=== PATIENT | female | born 1995 | race Caucasian/White ===

== ENCOUNTER 2018-09-24 16:46 | Emergency (ER) | payer OTHER ==
[~2018-09-24] VITALS: Ht 172.7 cm; Wt 97.5 kg
[2018-09-24 16:56] VITALS: BP 134/99
--- NOTE | 2018-09-24 18:37 | NUR ---
For discharge- [facility] given verbalized understanding Home ambulatory stable
== END 2018-09-24 18:40 | disposition home or self-care (01) ==
LOC: ER 16:49
DX: S60.221A Contusion of right hand, initial encounter (principal); X58.XXXA Exposure to other specified factors, initial encounter; Y93.71 Activity, boxing; Y92.89 Other specified places as the place of occurrence of the external cause; Y99.8 Other external cause status
CPT/HCPCS: 73130; 84703; 99284; A4606

== ENCOUNTER 2019-03-09 22:44 | Emergency (ER) | payer OTHER ==
[~2019-03-09] VITALS: Ht 172.7 cm; Wt 102.1 kg
[2019-03-09 23:25] VITALS: BP 131/91
[2019-03-09] MEDS ORDERED: HYDROCODONE/APAP 5/325MG 1 EACH TABLET ONE (23:55)
[2019-03-10] MEDS ORDERED: HYDROCODONE/APAP 5/325MG 1 EACH TABLET PO ONE
[2019-03-10 00:17] LABS: APPEARANCE,URINE Clear (CLEAR); BILIRUBIN,URINE Negative (NEGATIVE); BLOOD, URINE Small Ery/uL (NEGATIVE); COLOR,URINE Light yellow (YELLOW); KETONES,URINE 15 (NEGATIVE); LEUKOCYTE ESTERASE ,URINE Negative (NEGATIVE); NITRITE, URINE Negative (NEGATIVE); PROTEIN,URINE Negative (NEGATIVE); UGLUCOSE Negative (NEGATIVE); UROBILINOGEN,URINE 0.2 EU/dL (0.2)
[2019-03-10 00:41] LABS: BACTERIA,URINE Few /HPF (None Seen); SQUAMOUS EPITHELIAL CELL,UR Few /HPF (None Seen); WBC,URINE 0-2 /HPF (0-3)
== END 2019-03-10 02:07 | disposition home or self-care (01) ==
LOC: ER 22:49
DX: S39.011A Strain of muscle, fascia and tendon of abdomen, initial encounter (principal); X58.XXXA Exposure to other specified factors, initial encounter; Y93.89 Activity, other specified; Y92.89 Other specified places as the place of occurrence of the external cause; Y99.0 Civilian activity done for income or pay
CPT/HCPCS: 81000-TC; 84703-TC

== ENCOUNTER 2019-07-07 06:13 | Emergency (ER) | payer OTHER ==
[~2019-07-07] VITALS: Ht 172.7 cm; Wt 97.5 kg
[2019-07-07 06:15] VITALS: BP 136/90
== END 2019-07-07 06:41 | disposition home or self-care (01) ==
LOC: ER 06:19
DX: J20.9 Acute bronchitis, unspecified (principal)

== ENCOUNTER 2019-07-09 16:32 | Emergency (ER) | payer OTHER ==
[~2019-07-09] VITALS: Ht 172.7 cm; Wt 97.5 kg
--- NOTE | 2019-07-09 17:00 | NUR ---
cough and congestion since wednesday on PO ATB azithromycin 2 days left to complete Tx, c/o pressure, coughing, sore. on room air, breathing evenly and unlabored. connected to the monitor and pulse ox. kept comfortable, will continue to monitor accordingly.
[2019-07-09 18:55] VITALS: BP 135/81
--- NOTE | 2019-07-09 18:55 | NUR ---
Patient discharged to home in stable condition. Written and verbal after care instructions given. Patient verbalizes understanding of instruction.
== END 2019-07-09 18:55 | disposition home or self-care (01) ==
LOC: ER 16:33
DX: J06.9 Acute upper respiratory infection, unspecified (principal); R09.81 Nasal congestion
CPT/HCPCS: 71045-TC; 84703-TC

== ENCOUNTER 2019-08-14 12:58 | Emergency (ER) | payer OTHER ==
[~2019-08-14] VITALS: Ht 172.7 cm; Wt 97.5 kg
--- NOTE | 2019-08-14 14:45 | NUR ---
patient came in to the er c/o on and off cough x 3 months worst the past 10 days. On room air, breathing evenly and unlabored. connected to the monitor and pulse ox. kept comfortable, will continue to monitor accordingly.
[2019-08-14] MEDS ORDERED: ALBUTEROL FS 2.5 MG/3 ML VIAL.NEB ONE (15:16)
[2019-08-14] MEDS ORDERED: IPRATROPIUM NEB FS 0.5 MG/2.5 ML AMPUL.NEB ONE (15:16)
[2019-08-14] MEDS ORDERED: ACETAMINOPHEN ES 500 MG TABLET ONE (15:20)
[2019-08-14] MEDS ORDERED: IBUPROFEN 600 MG TABLET PO ONE ×2 (15:20→15:30)
[2019-08-14] MEDS ORDERED: ACETAMINOPHEN ES 500 MG TABLET PO ONE (15:30)
[2019-08-14] MEDS ORDERED: IPRATROPIUM NEB FS 0.5 MG/2.5 ML AMPUL.NEB NEB ONE (15:30)
[2019-08-14] MEDS ORDERED: ALBUTEROL FS 2.5 MG/3 ML VIAL.NEB NEB ONE (15:30)
--- NOTE | 2019-08-14 16:01 | NUR ---
yanira at bedside for x-ray
[2019-08-14 16:46] VITALS: BP 125/70
--- NOTE | 2019-08-14 16:47 | NUR ---
Patient discharged to home in stable condition. Written and verbal after care instructions given. Patient verbalizes understanding of instruction.
== END 2019-08-14 16:46 | disposition home or self-care (01) ==
LOC: ER 13:03
DX: J20.9 Acute bronchitis, unspecified (principal)
CPT/HCPCS: 71046; 84703-TC

== ENCOUNTER 2019-08-16 10:10 | Emergency (ER) | payer OTHER ==
[~2019-08-16] VITALS: Ht 172.7 cm; Wt 97.5 kg
--- NOTE | 2019-08-16 10:19 | NUR ---
patient clarke c/o fever, cough and congestion got worse, was here 2 days ago for same reason, last tylenol 8am. On room air, breathing evenly and unlabored. kept comfortable, will continue to monitor accordingly.
--- NOTE | 2019-08-16 11:30 | NUR ---
patient signed waiver form.
--- NOTE | 2019-08-16 13:17 | NUR ---
Patient discharged to home in stable condition. Written and verbal after care instructions given. Patient verbalizes understanding of instruction.
[2019-08-16 13:18] VITALS: BP 129/62
== END 2019-08-16 13:19 | disposition home or self-care (01) ==
LOC: ER 10:10
DX: J18.9 Pneumonia, unspecified organism (principal)
CPT/HCPCS: 71046